=== PATIENT | female | born 1985 | race African-American/Black ===

== ENCOUNTER 2016-11-01 02:44 | Emergency (ER) | payer SELFPAY ==
[~2016-11-01] VITALS: Ht 177.8 cm; Wt 167.6 kg
[~2016-11-01 02:44] MED LIST: DOXY100T PO; SULF1TAB47 PO
[2016-11-01 02:56] VITALS: BP 135/82; PULSE 86; RESP 20; TEMP 98.9; O2SAT 99
[2016-11-01 03:05] VITALS: BP 145/87; PULSE 90; RESP 20; O2SAT 99
--- NOTE | 2016-11-01 03:56 | PD ---
HPI Chief Complaint: Chest Pain Time Seen by Provider: 03:52 Travel History International Travel<30 days: No Contact w/Intl Traveler<30days: No Traveled to known affect area: No History of Present Illness HPI The patient is a 31-year-old female with no known history of heart disease who complains of pain to the left of the upper sternum at approximately 0 100-2013 0 today. The pain is going away now. The pain otherwise has been fairly constant and still exist to a very minor extent. She describes the pain as pulling strings in the area. She does have nausea but no shortness of breath or diaphoresis. She states there is some slight radiation to the back. She denies any history of hypertension, diabetes, heart disease at an early age among her family members but does have borderline cholesterol. The patient is obese. She does not smoke. PFSH Past Medical History Tetanus Vaccination: Unknown Influenza Vaccination: No ?: Not LMP: 10/29/2016 Social History Alcohol Use: No Tobacco Use: No Substance Use: No Allergies-Medications (Allergen,Severity, Reaction): Coded Allergies: Shrimp (Verified Allergy, Intermediate, Swelling, 10/29/09) Reported Meds & Prescriptions Reported Meds & Active Scripts Active Ibuprofen 600 Mg Tab 600 Mg PO TID Lortab (Hydrocodone-Acetaminophen) 5-325 Mg Tab 1 Tab PO Q4H PRN Bactrim Ds (Trimethoprim/Sulfamethoxazole) Tab 1 Tab PO BID Doxycycline Hyclate 100 mg (Doxycycline Hyclate) 100 Mg Tab 100 Mg PO BID Review of Systems Except as stated in HPI: all other systems reviewed are Neg Physical Exam Narrative GENERAL: The patient is obese, alert, oriented 3 in minimal apparent distress with her chest discomfort. Her vital signs show blood pressure 135/82 and are otherwise normal. SKIN: Warm and dry. HEAD: Atraumatic. Normocephalic. EYES: Pupils equal and round. No scleral icterus. No injection or drainage. ENT: No nasal bleeding or discharge. Mucous membranes pink and moist. NECK: Trachea midline. No JVD. CARDIOVASCULAR: Regular rate and rhythm. No murmur appreciated. I cannot reproduce the patient's chest pain by pressing on the chest wall. RESPIRATORY: No accessory muscle use. Clear to auscultation. Breath sounds equal bilaterally. GASTROINTESTINAL: Abdomen soft, non-tender, nondistended. Hepatic and splenic margins not palpable. MUSCULOSKELETAL: No obvious deformities. No clubbing. No cyanosis. No edema. NEUROLOGICAL: Awake and alert. No obvious cranial nerve deficits. Motor grossly within normal limits. Normal speech. PSYCHIATRIC: Appropriate mood and affect; insight and judgment normal. Data Data Last Documented VS Vital Signs Date Time Temp Pulse Resp B/P Pulse Ox O2 Delivery O2 Flow Rate FiO2 11/01/16 04:16 82 20 120/56 99 Room Air 11/01/16 02:56 98.9 Orders Complete Blood Count With Diff (11/01/16 03:33) Basic Metabolic Panel (Bmp) (11/01/16 03:33) Ldh Serum (11/01/16 03:33) Ast (Sgot) (11/01/16 03:33) Creatine Kinase (Cpk) (11/01/16 03:33) Troponin I (11/01/16 03:33) Prothrombin Time / Inr (Pt) (11/01/16 03:33) Act Partial Throm Time (Ptt) (11/01/16 03:33) Electrocardiogram (11/01/16 ) Chest, Single Ap (11/01/16 ) Ketorolac Inj (Toradol Inj) (11/01/16 04:45) Labs Laboratory Tests Test 11/01/16 03:50 White Blood Count 7.9 TH/MM3 Red Blood Count 5.30 MIL/MM3 Hemoglobin 10.1 GM/DL Hematocrit 33.5 % Mean Corpuscular Volume 63.3 FL Mean Corpuscular Hemoglobin 19.0 PG Mean Corpuscular Hemoglobin 30.0 % Concent Red Cell Distribution Width 19.3 % Platelet Count 351 TH/MM3 Mean Platelet Volume 7.1 FL Neutrophils (%) (Auto) 59.9 % Lymphocytes (%) (Auto) 26.1 % Monocytes (%) (Auto) 10.2 % Eosinophils (%) (Auto) 3.5 % Basophils (%) (Auto) 0.3 % Neutrophils # (Auto) 4.7 TH/MM3 Lymphocytes # (Auto) 2.1 TH/MM3 Monocytes # (Auto) 0.8 TH/MM3 Eosinophils # (Auto) 0.3 TH/MM3 Basophils # (Auto) 0.0 TH/MM3 CBC Comment AUTO DIFF Differential Comment AUTO DIFF CONFIRMED Platelet Estimate NORMAL Platelet Morphology Comment NORMAL Ovalocytes 1+ Prothrombin Time 11.4 SEC Prothromb Time International 1.0 RATIO Ratio Activated Partial 28.4 SEC Thromboplast Time Sodium Level 140 MEQ/L Potassium Level 3.9 MEQ/L Chloride Level 107 MEQ/L Carbon Dioxide Level 26.7 MEQ/L Anion Gap 6 MEQ/L Blood Urea Nitrogen 14 MG/DL Creatinine 0.82 MG/DL Estimat Glomerular Filtration 99 ML/MIN Rate Random Glucose 97 MG/DL Calcium Level 8.8 MG/DL Aspartate Amino Transf 23 U/L (AST/SGOT) Total Creatine Kinase 157 U/L Troponin I LESS THAN 0.02 NG/ML MDM Medical Decision Making Medical Screen Exam Complete: Yes Emergency Medical Condition: Yes Medical Record Reviewed: Yes Interpretation(s) The EKG shows sinus rhythm with rate of [address] elevation or depression. The CBC shows a hemoglobin of 10.1 and hematocrit of 33.5 but is otherwise unremarkable. The basic metabolic profile is normal and the cardiac enzymes are normal. The coagulation profile is unremarkable. The chest x-ray shows no acute change. Differential Diagnosis Atypical chest pain, chest wall pain, pleuritic chest pain, esophageal pain, gastrointestinal pain Narrative Course The patient appears to have atypical chest pain. Both clinically and from laboratory findings she appears to have no cardiac reason for her chest pain. Diagnosis Primary Impression: Atypical chest pain Additional Instructions: This pain does not appear to be from your heart. Follow-up with your primary care physician next week. We will prescribe Motrin, 600 mg 3 times daily, this usually relieves this type of pain. Med/Other Pt SpecificInfo: Prescription(s) given Scripts Ibuprofen 600 Mg [id number] Mg PO TID #44 TAB Ref 0 Prov:Vadim Sagastume MD 11/01/16 Hydrocodone-Acetaminophen (Lortab)5-325 Mg Tab1 Tab PO Q4H PRN (PAIN) #28 TAB Ref 0 Prov:Vadim Sagastume MD 11/01/16 Disposition: 01 DISCHARGE HOME Condition: Stable Vadim Sagastume MD Nov 01, 2016 03:56
[2016-11-01] MEDS ORDERED: HYDR-3533 PO (03:57)
[2016-11-01 04:03] LABS: AUTOMATED NEUTROPHIL # 4.7 TH/MM3 (1.8-7.7); BASOPHIL % 0.3 % (0.0-2.0); EOSINOPHIL # 0.3 TH/MM3 (0-0.4); EOSINOPHIL % 3.5 % (0.0-4.0); HEMATOCRIT 33.5 % (35.0-46.0); LYMPH % 26.1 % (9.0-44.0); LYMPHOCYTE # 2.1 TH/MM3 (1.0-4.8); MEAN CELL VOLUME 63.3 FL (80.0-100.0); MONO % 10.2 % (0.0-8.0); NEUT % 59.9 % (16.0-70.0); PLATELET COUNT 351 TH/MM3 (150-450); RED CELL DISTRIBUTION WIDTH 19.3 % (11.6-17.2); WHITE BLOOD COUNT 7.9 TH/MM3 (4.0-11.0)
[2016-11-01 04:07] LABS: HEMO FLAGS AUTO DIFF
[2016-11-01 04:14] LABS: CHLORIDE 107 MEQ/L (98-107); POTASSIUM 3.9 MEQ/L (3.5-5.1); SODIUM (NA) 140 MEQ/L (136-145)
[2016-11-01 04:16] VITALS: BP 120/56; PULSE 82; RESP 20; O2SAT 99
[2016-11-01 04:18] LABS: ANION GAP 6 MEQ/L (5-15); BICARBONATE 26.7 MEQ/L (21.0-32.0); BLOOD UREA NITROGEN 14 MG/DL (7-18)
[2016-11-01 04:19] LABS: APTT (PATIENT) 28.4 SEC (24.3-30.1); PROTHROMBIN TIME - PATIENT 11.4 SEC (9.8-11.6)
[2016-11-01 04:21] LABS: AST (GOT) 23 U/L (15-37); GLOMERULAR FILTRATION RATE 99 ML/MIN (>89)
[2016-11-01 04:23] LABS: OVALOCYTES 1+ (NORMAL); PLATELET ESTIMATE SMEAR NORMAL (NORMAL); PLATELET MORPHOLOGY NORMAL (NORMAL); SCAN/DIFF AUTO DIFF CONFIRMED
[2016-11-01 04:24] LABS: CREATINE KINASE 157 U/L (26-192)
[2016-11-01] MEDS ORDERED: IBUP-232 PO (04:36)
[2016-11-01] MEDS ORDERED: KETOROLAC TROMETHAMINE 60 MG/2 ML (IM) VIAL IVP ONE (04:45)
--- NOTE | 2016-11-01 05:00 | RADHPO ---
EXAM DATE/TIME: 11/01/2016 03:55 [facility] COMPARISON: No previous studies available for comparison. INDICATIONS : Chest pain. MEDICAL HISTORY : None. SURGICAL HISTORY : None. ENCOUNTER: Initial ACUITY: 1 day PAIN SCORE: 5/10 LOCATION: Bilateral chest FINDINGS: A single view of the chest demonstrates the lungs to be symmetrically aerated without evidence of inf iltrate or effusion. There is an elliptical density overlying the right hemidiaphragm. This measures 8.5 x 6.3 cm. The cardiomediastinal contours are unremarkable. Osseous structures are intact. CONCLUSION: 1. Elliptical density overlying the right hemidiaphragm. Exact etiology is uncertain. This could rela te to eventration hemidiaphragm. I cannot exclude a mass. CT of the thorax suggested to further evalu ate. Pepito Jones Jr., MD on November 01, 2016 at 4:57 Board Certified Radiologist. This report was verified electronically.
[2016-11-01 10:46] LABS: LDH SERUM 136 U/L (84-246)
--- NOTE | 2016-11-02 14:49 | EKG ---
Date Performed: 11/01/2016 Time Performed: 02:53:30 PTAGE: 31 years EKG: Sinus rhythm Poor R wave progression - probable normal variant Low QRS voltages in precordial leads Borderline EC G NO PREVIOUS TRACING DOCTOR: Ghassan Fountain Interpretating Date/Time 11/02/2016 14:47:00
== END 2016-11-01 05:10 | disposition home or self-care (01) ==
LOC: PHED 02:44
DX: R07.89 Other chest pain (principal)
CPT/HCPCS: 71010; 80048; 82550; 83615; 84450; 84484; 85025; 85610; 85730; 93005; 96374; 99285; J1885